=== PATIENT | female | born 1995 | race Caucasian/White ===

== ENCOUNTER → 2021-08-06 01:55 | Observation (INO) ==
[2021-08-06 01:07] VITALS: BP 116/71; PULSE 81; TEMP 98.6
[2021-08-06 01:35] LABS: Bilirubin,Urine Small (Negative); Blood,Urine Negative (Negative); Clarity,Urine Turbid (Clear); Color,Urine Dark-Yellow (Yellow); Glucose,Urine (UA) Normal (Normal); Ketones,Urine 40 mg/dL (Negative); Leukocyte Esterase,Urine Trace (Negative); Mucus,Urine Few per lpf (None-Few); Nitrite,Urine Negative (Negative); Protein,Urine 30 mg/dL (Neg-Trace); RBC,Urine 0-3 per hpf (0-3); Renal Epithelial Cells,Urine Few per hpf (None-Few); Specific Gravity,Urine 1.027 (1.010-1.025); Squamous Epithelial Cell,Urine Moderate per hpf (None-Few)
== END | disposition home or self-care (01) ==
LOC: 1NENULAB
PROVIDERS: ADMIT Advanced Practice Midwife; ATTEND Advanced Practice Midwife

== ENCOUNTER 2021-09-11 08:00 | Inpatient (IN) ==
[2021-09-11] MEDS ORDERED: *HR* Nalbuphine 10 MG/ML AMPUL IV PRN (08:38)
[2021-09-11] MEDS ORDERED: Famotidine 20 MG/2 ML VIAL IVP PRN (08:38)
[2021-09-11] MEDS ORDERED: Lidocaine 1% 20 ML MDV INFILT PRN (08:38)
[2021-09-11] MEDS ORDERED: Azithromycin 500 MG in 0.9 % Sodium Chloride 250 ML IVPB PRN (08:38)
[2021-09-11] MEDS ORDERED: Metoclopramide 10 MG/2 ML VIAL IVP PRN (08:38)
[2021-09-11] MEDS ORDERED: Ondansetron 4 MG/2 ML VIAL IVP PRN (08:38)
[2021-09-11] MEDS ORDERED: Penicillin G Potassium 5,000,000 UNIT in 0.9 % Sodium Chloride Mini Bag 100 ML IVPB ONE (08:44)
[2021-09-11] MEDS: Ringers Solution, Lactated 1,000 ML IVC SCH ×2 (09:30→18:21)
[2021-09-11] MEDS ORDERED: Oxytocin 20 units/ LR 1000 mL 20 UNIT/1,000 ML BAG IVC SCH (09:45)
[2021-09-11 09:56] LABS: Amphetamine Screen,Urine Negative ng/mL (Cutoff=1000); Barbiturate Screen,Urine Negative ng/mL (Cutoff=200); Benzodiazepines Screen,Urine Negative ng/mL (Cutoff=200); Cannabinoid Screen,Urine Negative ng/mL (Cutoff = 50); Cocaine Screen,Urine Negative ng/mL (Cutoff= 300); Opiate Screen,Urine Negative ng/mL (Cutoff=300); Phencyclidine Screen,Urine Negative ng/mL (Cutoff=25)
[2021-09-11 10:18] LABS: Basophils % 0.3 %; Eosinophils # 0.2 K/mcL (0.0-0.6); Eosinophils % 1.5 %; Hematocrit 34.4 % (35.3-44.9); Hemoglobin 11.9 g/dL (11.5-15.4); Immature Granulocytes % 0.5 % (0-4); Immature Platelets 4.8 % (1.1-6.1); Lymphocytes # 1.6 K/mcL (0.6-4.6); Lymphocytes % 14.4 %; Mean Corpuscular HGB Conc 34.6 g/dL (31.6-35.5); Mean Corpuscular Hemoglobin 32.5 pg (28.0-33.3); Mean Platelet Volume 10.5 fL (9.4-12.4); Monocytes # 0.8 K/mcL (0.0-1.3); Monocytes % 6.7 %; Neutrophils # 8.6 K/mcL (1.6-8.9); Platelet Count 295 K/mcL (140-400); Red Blood Count 3.66 M/mcL (3.82-4.97); Red Cell Distribution Width 12.9 % (11.5-14.5); Segmented Neutrophils % 76.6 %; White Blood Count 11.3 K/mcL (4.3-11.1)
[2021-09-11 10:24] LABS: Influenza A PCR Negative (Negative); Influenza B PCR Negative (Negative); Resp. Syncytial Virus PCR Negative (Negative)
[2021-09-11 10:28] LABS: SARS-CoV-2 by PCR (In House) Negative (Negative)
[2021-09-11] MEDS: Penicillin G Potassium 2,500,000 UNIT/105 ML MLS IVPB SCH ×3 (13:41→21:49)
[2021-09-11] MEDS ORDERED: EPHEDrine 50 MG/ML VIAL IVP PRN (22:33)
[2021-09-11] MEDS ORDERED: *HR* FentaNYL (PF) 100 MCG/2 ML VIAL EP ONE (22:33)
[2021-09-11] MEDS ORDERED: Ropivacaine/PF 0.2% 20 ML VIAL EP ONE (22:33)
[2021-09-11] MEDS ORDERED: Ropivacaine/PF 0.2% 20 ML VIAL ONE (22:36)
[2021-09-11] MEDS ORDERED: *HR* FentaNYL (PF) 100 MCG/2 ML VIAL ONE (22:36)
[2021-09-11] MEDS ORDERED: Epidural Premix (fent/bupiv) 110 ML EP SCH (22:45)
[2021-09-12] MEDS ORDERED: Oxytocin 20 units/ LR 1000 mL 20 UNIT/1,000 ML BAG IVC ONE (00:03)
[2021-09-12] MEDS ORDERED: Ondansetron ODT 4 MG TAB.RAPDIS SL PRN (00:03)
[2021-09-12] MEDS ORDERED: Measles/Mumps/Rubella Vacc 0.5 ML VIAL SQ PRN (00:03)
[2021-09-12] MEDS ORDERED: Lanolin 7 G OINT...G. TP PRN (00:03)
[2021-09-12] MEDS ORDERED: Rho Immune Globulin 1,500 UNIT SYRINGE IM PRN (00:03)
[2021-09-12] MEDS ORDERED: Oxytocin 20 units/ LR 1000 mL 20 UNIT/1,000 ML BAG IVC SCH (00:03)
[2021-09-12] MEDS ORDERED: Benzocaine/Menthol 56 GM AEROSOL SPRAY TP PRN (00:03)
[2021-09-12] MEDS: Ibuprofen 600 MG TABLET PO SCH ×4 (00:49→22:55)
[2021-09-12] MEDS: Acetaminophen 325 MG TABLET PO SCH ×4 (00:50→22:55)
[2021-09-12 04:06] LABS: Basophils # 0.1 K/mcL (0.0-0.2); Basophils % 0.3 %; Eosinophils # 0.1 K/mcL (0.0-0.6); Eosinophils % 0.3 %; Hematocrit 29.7 % (35.3-44.9); Hemoglobin 10.2 g/dL (11.5-15.4); Immature Granulocytes % 0.6 % (0-4); Lymphocytes # 1.4 K/mcL (0.6-4.6); Lymphocytes % 7.6 %; Mean Corpuscular HGB Conc 34.3 g/dL (31.6-35.5); Mean Corpuscular Hemoglobin 31.7 pg (28.0-33.3); Mean Corpuscular Volume 92.2 fL (83.0-100.0); Mean Platelet Volume 9.9 fL (9.4-12.4); Monocytes # 1.1 K/mcL (0.0-1.3); Monocytes % 6.2 %; Neutrophils # 15.4 K/mcL (1.6-8.9); Platelet Count 242 K/mcL (140-400); Red Blood Count 3.22 M/mcL (3.82-4.97); Red Cell Distribution Width 12.9 % (11.5-14.5); White Blood Count 18.1 K/mcL (4.3-11.1)
[2021-09-12] MEDS: Prenatal Vit/FA 1 EACH TABLET PO SCH (08:03)
[2021-09-13] MEDS: Acetaminophen 325 MG TABLET PO SCH (06:52)
[2021-09-13] MEDS: Ibuprofen 600 MG TABLET PO SCH (06:52)
[2021-09-13 08:13] VITALS: BP 99/62; PULSE 57; TEMP 97.9; O2SAT 98
[2021-09-13] MEDS ORDERED: Etonogestrel 68 MG IMPLANT IL ONE (08:17)
[2021-09-13] MEDS ORDERED: Lidocaine/EPI 1:100k 2% 20 ML VIAL INFILT ONE (08:19)
[2021-09-13] MEDS: Prenatal Vit/FA 1 EACH TABLET PO SCH (09:07)
== END 2021-09-13 11:04 | disposition home or self-care (01) | DRG 560 ==
LOC: 1NENULAB 08:17 → 1NENUOBS 09-12 02:30
PROVIDERS: ADMIT Student in an Organized Health Care Education/Training Program; ATTEND Student in an Organized Health Care Education/Training Program